=== PATIENT | female | born 2000 | race Caucasian/White ===

== ENCOUNTER 2023-02-03 21:44 | Emergency (ER) | payer OTHER ==
[~2023-02-03] VITALS: Ht 160 cm; Wt 56.7 kg
--- NOTE | 2023-02-03 21:58 | NUR ---
Patient BIB ambulance from facility, with c/o head feeling empty, patient is alert and oriented x3 with care-residential caregiver from facility. no s/s of any distress noted at this time. Informed of plan of care, awaiting MD exam.
[2023-02-03 22:21] LABS: MEAN CORPUSCULAR HEMOGLOBIN 29.1 uug (24.7-32.8); MEAN CORPUSCULAR VOLUME 86.8 fL (75.5-95.3); PLATELET COUNT (AUTO) 344 K/uL (179-408)
[2023-02-03 22:31] LABS: CREATININE 0.7 mg/dL (0.6-1.3)
--- NOTE | 2023-02-03 22:35 | NUR ---
Bedside EKG done for MD review.
[2023-02-03 22:37] LABS: CREATINE KINASE, TOTAL 79 U/L (26-192)
[2023-02-03 22:41] LABS: ACETAMINOPHEN < 2.0 ug/mL (10-30)
[2023-02-03 22:43] LABS: BILIRUBIN,TOTAL 0.2 mg/dL (0.2-1.0); TOTAL PROTEIN, SERUM 7.9 g/dL (6.4-8.2)
[2023-02-03 22:45] LABS: THYROID STIMULATING HORMONE 1.705 mIU/mL (0.358-3.740)
[2023-02-03 22:48] LABS: ETHANOL < 3 MG/DL (0-0)
[2023-02-03] MEDS ORDERED: BUSP10TA3 PO ×3 (22:50→22:55)
[2023-02-03] MEDS ORDERED: FLUO20CA42 PO (22:50)
[2023-02-03] MEDS ORDERED: PRAZ1CAP5 PO (22:51)
[2023-02-03] MEDS ORDERED: PROP20TA7 PO (22:57)
[2023-02-03] MEDS ORDERED: IBUP-1957 PO (22:57)
[2023-02-03] MEDS ORDERED: DOXE10CA2 PO (22:59)
[2023-02-03] MEDS ORDERED: HYDR50TA62 PO (23:00)
--- NOTE | 2023-02-03 23:07 | NUR ---
Patient was up to bathroom and back to bed, urine collected, caregiver remains at bedside.
[2023-02-03 23:19] LABS: *BILIRUBIN,URIN NEGATIVE (NEGATIVE); *BLOOD, URINE NEGATIVE (NEGATIVE); *CLARITY,URINE CLEAR (CLEAR); *COLOR,URINE YELLOW (YELLOW); *KETONES,URINE NEGATIVE (NEGATIVE); *UROBILINOGEN,URINE 0.2 E.U./dl (NORMAL); LEUKOCYTE ESTERASE ,URINE NEGATIVE (NEGATIVE); NITRITE, URINE NEGATIVE (NEGATIVE); UGLUCOSE NEGATIVE (NEGATIVE)
[2023-02-03 23:27] LABS: *URINE HCG, QUAL NEGATIVE (NEGATIVE)
[2023-02-03 23:35] LABS: *AMPHETAMINE, URINE NEGATIVE (NEGATIVE); *CANNABINOID, URINE NEGATIVE (NEGATIVE); *COCCAINE, URINE NEGATIVE (NEGATIVE); *PHENCYCLIDINE SCREEN,URINE NEGATIVE (NEGATIVE)
--- NOTE | 2023-02-03 23:59 | NUR ---
Attempted to call [facility]gr[facility], unable to leave a voice recording.
--- NOTE | 2023-02-04 | NUR ---
MD WAS AT BEDSIDE TALKING WITH PATIENT, PATIENT STATES SHE FEELS BETTER, OKAY FOR DISCHARGE BACK TO FACILITY WITH CAREGIVER. ACI GIVEN STATES UNDERSTANDING, AND REMAINS STABLE FOR DISCHARGE.
--- NOTE | 2023-02-04 00:01 | NUR ---
Spoke to Clara Negron and update of patient's status.
[2023-02-04 00:02] VITALS: BP 119/81
== END 2023-02-04 00:03 | disposition other institution (70) ==
LOC: ER 22:10
DX: N17.9 Acute kidney failure, unspecified (principal); R41.82 Altered mental status, unspecified; Z88.8 Allergy status to other drugs, medicaments and biological substances; Z91.014 Allergy to mammalian meats
CPT/HCPCS: 36415; 84443; 84703; 85025; 93005; A4663; G0480

== ENCOUNTER 2023-03-07 10:49 | Emergency (ER) | payer OTHER ==
[~2023-03-07] VITALS: Ht 157.5 cm; Wt 59.9 kg
[~2023-03-07 10:49] MED LIST: BUSP10TA3 PO; DOXE10CA2 PO; FLUO20CA42 PO; HYDR50TA62 PO; IBUP-1957 PO; PRAZ1CAP5 PO; PROP20TA7 PO
[2023-03-07] MEDS ORDERED: BISM262T15 PO (11:35)
[2023-03-07] MEDS ORDERED: PRAZ5CAP2 PO (11:35)
[2023-03-07] MEDS ORDERED: PRAZ1CAP5 PO (11:35)
[2023-03-07] MEDS ORDERED: LEMB5TAB PO (11:35)
[2023-03-07] MEDS ORDERED: LIDOCAINE PATCH (11:35)
[2023-03-07] MEDS ORDERED: QUET50TA PO (11:35)
[2023-03-07] MEDS ORDERED: BISM525O14 PO (11:35)
[2023-03-07] MEDS ORDERED: GABA-532 PO (11:35)
[2023-03-07 11:52] LABS: *BILIRUBIN,URIN NEGATIVE (NEGATIVE); *BLOOD, URINE NEGATIVE (NEGATIVE); *CLARITY,URINE CLEAR (CLEAR); *COLOR,URINE YELLOW (YELLOW); *KETONES,URINE NEGATIVE (NEGATIVE); *UROBILINOGEN,URINE 0.2 E.U./dl (NORMAL); LEUKOCYTE ESTERASE ,URINE TRACE (NEGATIVE); NITRITE, URINE NEGATIVE (NEGATIVE); UGLUCOSE NEGATIVE (NEGATIVE)
[2023-03-07 11:53] LABS: *URINE HCG, QUAL NEGATIVE (NEGATIVE)
[2023-03-07] MEDS ORDERED: NAPROXEN 500 MG TABLET ONE (12:01)
[2023-03-07] MEDS: NAPROXEN 500 MG TABLET PO ONE (12:04)
[2023-03-07 13:02] LABS: BACTERIA,URINE NONE SEEN /HPF (NONE SEEN); RBC,URINE 0-3 /HPF (0-3); WBC,URINE 0-3 /HPF (0-3)
[2023-03-07 13:03] LABS: CALCIUM CARBONATE CRYSTALS,UR NONE SEEN /HPF (NONE SEEN); CALCIUM OXALATE CRYSTALS,UR NONE SEEN /HPF (NONE SEEN); CALCIUM PHOSPHATE CRYSTALS,UR NONE SEEN /HPF (NONE SEEN); COARSE GRANULAR CASTS,URINE NONE SEEN /LPF; CYSTINE CRYSTALS,URINE NONE SEEN /HPF (NONE SEEN); FATTY CASTS,URINE NONE SEEN /LPF (NONE SEEN); MUCUS,URINE MODERATE /LPF (0-FEW); RED BLOOD CELL CASTS,URINE NONE SEEN /LPF (NONE SEEN); SPERM,URINE NONE SEEN /HPF (NONE SEEN); SQUAMOUS EPITHELIAL CELL,UR MANY /HPF (NONE SEEN); TRICHOMONAS,URINE NONE SEEN /HPF (NONE SEEN); TRIPLE PHOSPHATE CRYSTAL,UR NONE SEEN /HPF (NONE SEEN); TYROSINE CRYSTAL,URINE NONE SEEN /HPF (NONE SEEN); URIC ACID CRYSTALS,URINE NONE SEEN /HPF (NONE SEEN); URINE AMORPHOUS PHOSPHATES NONE SEEN /HPF; URINE AMORPHOUS URATE NONE SEEN /HPF; WAXY CASTS,URINE NONE SEEN /LPF (NONE SEEN); YEAST,URINE NONE SEEN /HPF (NONE SEEN)
== END 2023-03-07 13:55 | disposition home or self-care (01) ==
LOC: ER 10:49
DX: M54.50 Low back pain, unspecified (principal); Z79.1 Long term (current) use of non-steroidal anti-inflammatories (NSAID); Z79.899 Other long term (current) drug therapy
CPT/HCPCS: 84703; A4663